=== PATIENT | male | born 1975 | race Caucasian/White ===

== ENCOUNTER 2018-08-01 20:56 | Emergency (ER) | payer OTHER ==
[2018-08-01 21:05] VITALS: BP 145/92; PULSE 74; TEMP 98; BMI 30.1
--- NOTE | 2018-08-01 21:48 | PDOC ---
History of Present Illness - General Chief Complaint: Choking Sensation Stated Complaint: SENSATION OF CHOCKING Time Seen by Provider: 08/01/18 21:20 History Source: Patient Exam Limitations: No Limitations Past History - Past Medical History Home Medications: Ambulatory Orders NK [No Known Home Medication] 08/01/18 COPD: No CHF: No - Suicide/Smoking/Psychosocial Hx Smoking History: Unknown if ever smoked Have you smoked in the past 12 months: No Information on smoking cessation initiated: No Hx Alcohol Use: No Drug/Substance Use Hx: No *Physical Exam - Vital Signs Last Vital Signs Temp Pulse Resp BP Pulse Ox 98.0 F 74 16 145/92 100 08/01/18 21:02 08/01/18 21:02 08/01/18 21:02 08/01/18 21:02 08/01/18 21:02 - Physical Exam General Appearance: No: Apparent Distress HEENT: positive: Pharynx Normal, Other (no FB noted in throat) Neck: positive: Supple Respiratory/Chest: positive: Lungs Clear, Normal Breath Sounds. negative: Respiratory Distress Cardiovascular: positive: Regular Rhythm, Regular Rate, S1, S2. negative: Murmur Integumentary: positive: Normal Color Neurologic: positive: Alert, Normal Mood/Affect ED Treatment Course - RADIOLOGY Radiology Studies Ordered: Category Date Time Status SOFT TISSUE NECK CT W/O CONTR [CT] Stat CT Scan 08/01/18 21:29 Ordered Medical Decision Making - Medical Decision Making 42 y/o M with no sig pmh presents with feeling of small chicken bone stuck in throat, which occurred around 8 PM today. States tried inducing himself to vomit and then later had an apple and drank water, which went down well. States overall feels fine, but has sensation of something possibly still there. Denies fever, sob, cp, abd pain. Discussed with patient about getting CT neck to assess for FB Risks of CT neck discussed including exposure to radiation Patient decided he would rather hold off on CT imaging for now as he feels fine for the most part and does not want the radiation exposure 08/01/18 21:44 *DC/Admit/Observation/Transfer Diagnosis at time of Disposition: Foreign body sensation in throat - Discharge Dispostion Disposition: HOME Condition at time of disposition: Stable Decision to Admit order: No - Referrals - Patient Instructions Additional Instructions: Thank you for choosing [facility]. It was a pleasure taking care of you. As for now, imaging of your neck was deferred per your requests Follow-up with your regular doctor in 2-3 days Return to the Emergency Department if your symptoms worsen or persist, you have difficulty swallowing, unable to swallow or other concerning symptoms. - Post Discharge Activity
== END 2018-08-01 22:06 | disposition home or self-care (01) ==
LOC: JERFT 20:56
DX: R09.89 Other specified symptoms and signs involving the circulatory and respiratory systems (principal)
CPT/HCPCS: 99281-25